=== PATIENT | male | born 1975 | race Caucasian/White ===

== ENCOUNTER 2019-01-07 08:55 | Outpatient (CLI) | payer OTHER, SELFPAY ==
[2019-01-07 10:57] LABS: Hemoglobin A1C 10.1 % (4.5-6.2)
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
== END 2019-01-07 09:15 ==
PROVIDERS: PCP Family Medicine; Visit Provider Student in an Organized Health Care Education/Training Program
DX: M25.512 Pain in left shoulder (principal); M75.32 Calcific tendinitis of left shoulder; Z01.812 Encounter for preprocedural laboratory examination; E11.9 Type 2 diabetes mellitus without complications; Z01.818 Encounter for other preprocedural examination
CPT/HCPCS: 36415; NC; 83036

== ENCOUNTER 2019-02-13 09:46 | Day surgery (SDC) | payer OTHER, SELFPAY ==
[2019-02-13] VITALS (9 sets, daily range): BP systolic 97–154; BP diastolic 58–96; PULSE 82–103; RESP 15–22; TEMP 36.3–36.9; O2SAT 93–97
[2019-02-13] MEDS: Lactated Ringers 1,000 ML 80 ML IV (10:22)
[2019-02-13] MEDS: CLINDAMYCIN 600 MG/50 ML BAG 100 MG IVPB (12:20)
--- NOTE | 2019-02-13 14:18 | PDOC.DSDIS_ITS ---
Discharge Plan Disposition Patient Disposition: HOME Condition: Good Discharge Details Reason For Visit: Left Calcific Tendinitis Attending Provider: Dylan Hernandez Primary Care Provider: Juan Crews Home Meds and New Rx's Prescriptions: New acetaminophen 500 mg tablet 1,000 mg PO Q8H PRN (Reason: pain) Qty: 90 RF: 3 ibuprofen 600 mg tablet 600 mg PO TID PRNQty: 90 RF: 3 oxycodone 5 mg tablet 5 mg PO Q4H Qty: 18 RF: 0 Continued Ozempic 0.25 mg or 0.5 mg(2 mg/1.5 mL) pen injector 0.5 mg SC QWEEK RF: 0 metformin 1,000 mg tablet 1,000 mg PO BID RF: 0 lisinopril-hydrochlorothiazide 10-12.5 mg tablet 1 tab PO ONCE RF: 0 multivitamin Tablet 1 tab PO DAILY RF: 0 Novolog Flexpen U-100 Insulin 100 unit/mL Insulin Pen SUBCUT BID RF: 0 Basaglar KwikPen U-100 Insulin 100 unit/mL (3 mL) Insulin Pen 35 unit SUBCUT BID RF: 0 diazepam 5 mg tablet 5 mg PO QHS PRN (Reason: sleep) Qty: 10 RF: 0 Discontinued meloxicam 15 mg tablet 15 mg PO DAILY Qty: 30 RF: 3 Discharge Instructions Stand Alone Forms: Mary Shoulder Arthro Referrals: Dylan Hernandez MD [ [facility] STAFF PHYSICIAN] - Equipment/Supplies: Sling Activity:: Gentle motion as tolerated, sling for comfort Remove Dressings/Wound Care:: 72 hours Shower/Bathe:: 72 hours Diet:: Carb Counting Discharge Orders Discharge Orders: Discharge Order (Routine); Ordered 02/13/19 Ordered By: Dylan Hernandez DS: Diagnosis Discharge Diagnosis (1) Calcific tendonitis of left shoulder: Status: Chronic
[2019-02-13] MEDS: Acetaminophen 325 MG TAB 650 MG PO (16:04)
--- NOTE | 2019-02-14 15:00 | ROE_ITS ---
Date of service: 02/13/19 Time of Service: 15:00 Operative Note DATE OF PROCEDURE: 02/13/19 PRE-OP DIAGNOSIS: Left Shoulder Calcific Tendinitis, Partial Rotator Cuff Tear POST-OP DIAGNOSIS: same PROCEDURE: - Extensive debridement of anterior and posterior glenohumeral joint and rotator cuff - Subacromial Debridement with Acromioplasty SURGEON: Dylan Hernandez PEDIATRIC CRITICAL CARE NURSE: Jocelyn Malin ANESTHESIA: GETA and regional ESTIMATED BLOOD LOSS: 0 PATHOLOGY: none sent COMPLICATIONS: None Patient was transported to: PACU Patient's condition: stable Indications: I have seen Vlad in clinic for a painful shoulder. Pathology was confirmed based on MRI and exam findings. Nonoperative measures were exhausted but disability and pain persisted. I discussed shoulder arthroscopy and procedures. I reviewed the risks of the procedures to include, but not limited to, bleeding, infection, pain, stiffness, damage to nerves or vessels, recurrence, hardware failure, blood clot. Despite these risks, the patient elected to proceed. Findings: A diagnostic arthroscopy was performed with the following findings: - Glenohumeral Joint: No arthritic changes - Labrum: Minor inflammatory changes seen along the labrum - Cuff: Some notable synovitis and inflammatory change seen under the undersurface of the subscapularis and supraspinatus and infraspinatus. - Biceps: Minor inflammatory change, no tearing. Hannibal intact. - Subacromial: Thickened bursa with 2 to 3 mm of bursal sided tearing of the supraspinatus anteriorly and mild anterolateral spurring Procedure Description: Vlad was greeted in the preoperative holding area where the correct side was identified and marked. The consent was reviewed with the patient and signed. The history and physical was updated. All questions were answered. Vlad was taken back to the PACU for administration of an intrascalene nerve block. Vlad was then taken to the operating room. The patient was placed into the supine position on the operating room table. A general anesthetic was administered. He was then positioned in the beach chair position. All bony prominences were well padded. The head was placed in a foam head of insight in a neutral position. Prophylactic antibiotics in the form of Cefazolin were administered. The left arm/shoulder was then prepped with Chloraprep and draped in a standard fashion with stockinette and shoulder drape. A timeout to confirm correct identity, side and site, procedure, allergies, anesthesia, and medical concerns was performed. The arm was placed into a pneumatic esqueda, [id number]. The shoulder arthroscopy was then performed. The glenohumeral joint was injected with 20 cc of normal saline with good flow back. A standard posterior portal was made and the joint was entered atraumatically with a blunt arthroscope. Once inside we had good visualization of the structures of the gle nohumeral joint. An anterior portal was established with spinal needle localization. A 6.5 mm cannula was inserted. A probe was then used to perform a diagnostic arthroscopy. There is noted to be no significant cartilage damage of the glenoid humeral joint. The labrum was intact anteriorly and posteriorly. There were no loose bodies in the inferior pouch. The superior rotator cuff was attached to the tuberosity with some inflammatory change and minor fraying at the undersurface within the crescent. The biceps tendon was without tearing. The subscapularis was intact. An extensive debridement was performed of the inflammatory change on the undersurface of the rotator cuff anteriorly and posteriorly. The fraying within the crest was also debrided down to healthy tendon. The arthroscope was then inserted into the subacromial space. The 6.5 mm cannula was placed lateral to the CA ligament. Given that there was no significant tearing of the rotator cuff I went ahead and release the CA ligament off the anterolateral corner of the acromion. A complete bursectomy is performed anteriorly, posteriorly, and laterally with electrocautery and shaver. This had excellent exposure of the rotator cuff. The bursal side rotator cuff was frayed with 2 to 3 mm of depth of tearing. This was debrided down with a shaver to healthy linear tissues. There is no notable calcific disease as previously seen on MRI and x-ray. I probed multiple areas and did not find anything to express. I then took a spinal needle in place multiple holes within the insertion of the rotator cuff to promote healing. There was a notable anterolateral spur. Using a spinal needle a lateral portal was established. This became the viewing portal. A 5.0 mm lula was then inserted from the posterior portal. The anterolateral corner of the acromion was then resected in plane with the posterior slope of the acromion. The scope equipment was removed from the shoulder. Excess fluid was evacuated. The portal sites were closed with 3-0 Monocryl. The wounds were dressed with Steri-Strips, 4 x 4's, ABDs, Medipore tape. A sling was applied. The patient tolerated the procedure well and was returned to the Same Day Surgery area in a stable condition suffering no known complication.
== END 2019-02-13 17:11 | disposition home or self-care (01) ==
PROVIDERS: PCP Family Medicine; Visit Provider Student in an Organized Health Care Education/Training Program
PROC: (CPT 29827; principal; 2019-02-13 11:45)
PROC: (CPT 29823; 2019-02-13 11:45)
DX: M75.32 Calcific tendinitis of left shoulder (principal); M75.112 Incomplete rotator cuff tear or rupture of left shoulder, not specified as traumatic; M25.512 Pain in left shoulder; E11.9 Type 2 diabetes mellitus without complications; I10 Essential (primary) hypertension; Z86.14 Personal history of Methicillin resistant Staphylococcus aureus infection; G89.18 Other acute postprocedural pain
CPT/HCPCS: 29823; 76942; J1100; J1885; J2250; J2370; J2405; L3650